=== PATIENT | female | born 1960 | race Caucasian/White ===

== ENCOUNTER → 2016-02-22 | Outpatient (CLI) | payer OTHER ==
--- NOTE | 2016-02-22 10:18 | MA ---
Screening Digital Mammogram With Tomosynthesis Clinical Indications: Routine screening. Technique: Standard digital cephalocaudal and tomosynthesis mediolateral oblique projections are obt ained. The digital images are processed by the [employer] ([place] computer aided detection system. Comparison: January 2015, 2013, 2012 , 2011 and 2010 Breast density: C; The breast tissue is heterogeneously dense, which could obscure detection of small masses. Findings: CAD was reviewed. No suspicious findings are identified. Impression: Negative mammogram. BI-RADS 1. Recommendation: Routine screening is recommended in one year, as long as physical examination is kandi ign in this patient with moderately dense breast parenchyma. [facility] will send a result letter to the patient. Negative mammography should not preclude additional workup of a clinically suspicious finding. The patient's information is entered into a reminder system with a target due date for her next mammo gram.
== END ==
LOC: FIMAGING 08:03
DX: Z12.31 Encounter for screening mammogram for malignant neoplasm of breast (principal)
CPT/HCPCS: G0202

== ENCOUNTER → 2016-03-21 | Outpatient (CLI) | payer OTHER | LOC: SBRMNEURO 22:00 | PROVIDERS: ATTEND Internal Medicine Pulmonary Disease | DX: G47.39 Other sleep apnea (principal); G47.33 Obstructive sleep apnea (adult) (pediatric); G47.36 Sleep related hypoventilation in conditions classified elsewhere ==

== ENCOUNTER → 2017-03-20 | Outpatient (CLI) | payer OTHER | LOC: FIMAGING 12:37 | PROVIDERS: ATTEND Family Medicine | DX: Z12.31 Encounter for screening mammogram for malignant neoplasm of breast (principal); Z80.3 Family history of malignant neoplasm of breast ==

== ENCOUNTER → 2018-03-22 | Outpatient (CLI) | payer OTHER | LOC: FIMAGING 08:06 | PROVIDERS: ATTEND Family Medicine | DX: Z12.31 Encounter for screening mammogram for malignant neoplasm of breast (principal); Z80.3 Family history of malignant neoplasm of breast ==